=== PATIENT | male | born 1975 | race Caucasian/White ===

== ENCOUNTER → 2016-08-29 | Outpatient (CLI) | payer BC ==
--- NOTE | 2016-08-29 12:33 | CONS ---
DATE OF CONSULTATION: 08/29/2016 CONSULTATION/NEW PATIENT EVALUATION A 41-year-old gentleman who has been evaluated in the sleep center for possible obstructive sleep apnea, hypopnea syndrome. HISTORY OF PRESENT ILLNESS/SLEEP-WAKE EVALUATION: SLEEP SCHEDULE: Patient's usual sleep schedule is from 11 p.m. to 6:30 a.m. on working days and 10 until 7:30 a.m. on weekends. FALLING ASLEEP: No problem with falling asleep. Sometimes room noise is disturbing him. No TV in bedroom. DURING SLEEP: He sleeps on the side position. Wakes up from sleep up to 4 times with up to 2 times of nocturia with snoring and witnessed episodes of stopped breathing by his . Positive history of grinding teeth. DURING THE DAY/WAKE STATE: In the morning, patient wakes up tired, sleepiness during the day. [place] Sleepiness Scale significantly increased to 11. He may take a nap usually one time a day. No history of hypnagogic hallucinations, sleep paralysis or cataplexy. PAST MEDICAL HISTORY: Positive for hyperlipidemia. PAST SURGICAL HISTORY: Vasectomy. MEDICATIONS: Medication for hyperlipidemia. FAMILY HISTORY: Hyperlipidemia, snoring, headaches, cancer. SOCIAL HISTORY: Negative for smoking. Alcohol consumption very rarely. REVIEW OF SYSTEMS: Sleepiness during the day, very loud snoring. No fevers. No double vision. No recent chest pain. No shortness of breath. No abdominal pain. No bleeding episodes. No blood in urine. No seizure episodes. PHYSICAL EXAMINATION: During physical exam, a 41-year-old gentleman without distress. VITAL SIGNS: BP 154/73, HR 68, RR 16. Height 6 feet 1 inch, weight 242. BMI 31.9. Neck 17-3/4. Temp 98.3. Oxygen saturation at room air 97%. HEENT: PERRLA, EOMI. Evaluation of oropharynx showed moderately low position of soft palate. NECK: Supple. No JVD. Thyroid is not palpable. LUNGS: Clear to percussion and to auscultation. Good air exchange. No wheezing or rhonchi. HEART: S1, S2 regular. No murmurs, gallops or rubs. ABDOMEN: Slightly obese. EXTREMITIES: No clubbing or cyanosis. SHOW DESIGN SUPERVISOR: Awake, alert, and oriented x3. Cranial nerves 2 to 7 intact. There is no fasciculation or atrophy noted. No focal deficits observed. IMPRESSION: 1. Snoring, witnessed episodes of stopped breathing during sleep, low position of soft palate, awakenings from sleep, sleepiness, obstructive sleep apnea-hypopnea syndrome. 2. Mild obesity, body mass index of 31.9. 3. Hyperlipidemia. 4. Status post vasectomy. PLAN: 1. Home sleep apnea test for evaluation of patient's breathing during sleep. 2. CPAP titration for correction of respiratory abnormalities. 3. Losing weight. 4. Sleep hygiene with regular time in bed for at least 8 hours. 5. No driving if feeling any sleepiness. Thank you very much for referring this patient for consultation. Sincerely, Branden Redman MD, PhD, FAASM. Diplomat of [employer] [employer], Sleep Medicine Board by [employer] [employer] Software Support Specialist of [facility] [place]
== END ==
LOC: SLEEP 11:00
PROVIDERS: ATTEND Internal Medicine
DX: G47.33 Obstructive sleep apnea (adult) (pediatric) (principal); E66.9 Obesity, unspecified; E78.5 Hyperlipidemia, unspecified; Z68.31 Body mass index [BMI] 31.0-31.9, adult; Z79.899 Other long term (current) drug therapy
CPT/HCPCS: 99211

== ENCOUNTER → 2018-09-03 | Outpatient (CLI) | payer BC ==
--- NOTE | 2018-09-03 14:11 | XR ---
EXAMINATION TYPE: XR chest 2V DATE OF EXAM: 09/03/2018 COMPARISON: Prior chest x-ray 08/08/2015 HISTORY: Chest pain TECHNIQUE: Frontal and lateral views of the chest are obtained. FINDINGS: There is no focal air space opacity, pleural effusion, or pneumothorax seen. The cardiac silhouette size is within normal limits. The osseous structures are intact. IMPRESSION: No acute cardiopulmonary process.
== END ==
LOC: RADXRMAIN 10:23
PROVIDERS: ATTEND Family Medicine
DX: R07.9 Chest pain, unspecified (principal)
CPT/HCPCS: 71046